=== PATIENT | female | born 2000 | race Two or more races ===

== ENCOUNTER 2025-06-01 11:28 | Observation (INO) | payer OTHER ==
[~2025-06-01] VITALS: Ht 161.3 cm; Wt 116.1 kg
--- NOTE | 2025-06-01 12:17 | DVHDS2 ---
Physician Discharge Progress N Final Diagnosis: cramping 37wks Operations or Procedures: Operations or Procedures nst reactive reviwed,sono Condition on Discharge: Good Disposition: Home Discharge Instructions: Diet: Regular Activity: No Restrictions, As Tolerated Medications: na Follow Up Care: Specialist: 1w Discharge Statement: "Patient was advised to return to the ER or call 911 if any headaches, dizziness, shortness of breath, chest pain, abdominal pain, bleeding, fevers, or worsening of medical condition. Patient was counseled about treatment plan, medications, possible side effects, patientverbalized understanding. All questions were answered to the best of my ability. This discharge took greater then 30 minutes in planning, reviewing docum entation, counseling the patient, and discussing with other team members." Visit Coding OBGYN Date of Service: Jun 01, 2025 Billing Provider: KALIE WELDON DO ACCOUNT SERVICES ASSOCIATE Common Visit Codes: [id number] OBS CARE (HIGH) ACCOUNT SERVICES ASSOCIATE Procedure Codes: 98137-74- NON-STRESS TEST KALIE WELDON DO Jun 01, 2025 12:17
== END 2025-06-01 12:27 | disposition home or self-care (01) ==
LOC: LDRP 11:28
PROVIDERS: ADMIT Obstetrics & Gynecology; ATTEND Obstetrics & Gynecology
DX: O26.893 Other specified pregnancy related conditions, third trimester (principal); R25.2 Cramp and spasm; Z3A.37 37 weeks gestation of pregnancy; Z98.890 Other specified postprocedural states
CPT/HCPCS: 59025; 81002; 94760; G0378

== ENCOUNTER 2025-06-15 11:22 | Inpatient (IN) | payer OTHER, MEDICAID ==
[~2025-06-15] VITALS: Ht 160 cm; Wt 71.7 kg
[2025-06-15] MEDS ORDERED: BUTORPHANOL TARTRATE 2 MG/1 ML VIAL IV PRN ×2 (21:30)
[2025-06-15] MEDS ORDERED: LIDOCAINE 2%HCL (LOCAL ANESTH.) INJ 20ML MDV IJ PRN (21:30)
[2025-06-15 22:24] LABS: Hematocrit 39.5 % (36.0-46.0); Hemoglobin 13.6 g/dL (12.2-16.2); Mean Corpuscular Hemoglobin 31.0 pg (28.0-32.0); Mean Corpuscular Volume 90.0 fL (80.0-100.0); Nucleated Red Blood Cells % 0.1 %
[2025-06-15 22:35] LABS: Urine Budding Yeast OCCASIONAL /hpf (None Seen); Urine Protein, UAD Negative (Negative)
[2025-06-15 22:38] LABS: INR 1.02 (0.9-1.15); Partial Thromboplastin Time 27.6 SEC (24.5-34.5); Prothrombin Time 10.8 sec (9.3-11.8)
[2025-06-15 22:42] LABS: Alanine Aminotransferase 20 U/L (7-40); Albumin 3.9 g/dL (3.2-4.8); Anion Gap 12 (5-15); BUN/Creatinine Ratio 15.1 (10.0-20.0); Calcium 8.9 mg/dL (8.7-10.4); Carbon Dioxide 21 mmol/L (20-31); Chloride 107 mmol/L (98-107); Glucose 95 mg/dL (74-106); Potassium 4.0 mmol/L (3.5-5.1); Sodium 140 mmol/L (136-145); Total Protein 6.6 g/dL (5.7-8.2)
[2025-06-15 22:48] LABS: Alkaline Phosphatase 167 U/L (46-116); Bilirubin, Total 0.2 mg/dL (0.2-1.0); Blood Urea Nitrogen 8 mg/dL (9-23)
[2025-06-15 22:48] LABS: Amphetamine Screen, Urine Neg (NEGATIVE); Barbiturate Scree,Urine Neg (NEGATIVE); Benzodiazephine Screen, Urine Neg (NEGATIVE); Cannabinoid Screen, Urine Neg (NEGATIVE); Cocaine Screen, Urine Neg (NEGATIVE); Opiate Scree,Urine Neg (NEGATIVE); Phencyclidine Screen, Urine Neg (NEGATIVE)
[2025-06-15] MEDS: WITCH HAZEL-GLYCERIN PAD TOP PRN (23:29)
[2025-06-15] MEDS: DERMOPLAST 60ML BOTTLE TOP PRN (23:29)
[2025-06-15] MEDS: PHISODERM TOP SOLN 240ML BTL TOP PRN (23:30)
[2025-06-15] MEDS: LACTATED RINGER'S 1,000 ML IV SCH (23:33)
--- NOTE | 2025-06-16 02:20 | DVHHP2 ---
OB CC & HPI Date Date of Admission: Jun 15, 2025 Patient Identification: : 2 Para: 0 EDC: Jun 17, 2025 Chief Complaints: Reason for admission: induction of labor Indication for induction: other Other reason for admission: Elective IOL History of Present Complaints Admission for Elective Induction of Labor 39w5d 06/15/2025 @ 2200 24 y/o (0,0,0,0) @ 39w5d Present to Labor unit for scheduled IOL Reports good' movements, Denies Leaking of fluid or vaginal bleeding Received care with Dr Mccartney LMP: 09/10/2024 EDC: 06/17/[address] Mccartney labs Blood Type A positive GBS Negative Rubella Immune RPR : Non Reactive - normal course thus far 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: Denies PSH: Denies Medications: PNV Social Hist: Denies Objective Laboratory Tests Test 06/15/25 22:10 06/15/25 22:00 Range/Units White Blood Count 9.3 4.4-10.8 10^3/uL Red Blood Count 4.39 4.0-5.20 10^6/uL Hemoglobin 13.6 12.2-16.2 g/dL Hematocrit 39.5 36.0-46.0 % Mean Corpuscular Volume 90.0 80.0-100.0 fL Mean Corpuscular Hemoglobin 31.0 28.0-32.0 pg Mean Corpuscular Hemoglobin Concent 34.4 32.0-36.0 g/dL Red Cell Distribution Width 16.1 H 11.8-14.3 % Platelet Count 209 140-450 10^3/uL Mean Platelet Volume 10.0 6.9-10.8 fL Neutrophils (%) (Auto) 64.2 37.0-80.0 % Lymphocytes (%) (Auto) 26.1 10.0-50.0 % Monocytes (%) (Auto) 8.0 0.0-12.0 % Eosinophils (%) (Auto) 1.4 0.0-7.0 % Basophils (%) (Auto) 0.3 0.0-2.0 % Neutrophils # (Auto) 6.0 1.6-8.6 10 ^3/uL Lymphocytes # (Auto) 2.4 0.4-5.4 10 ^3/uL Monocytes # (Auto) 0.7 0-1.3 10 ^3/uL Eosinophils # (Auto) 0.1 0-0.8 10 ^3/uL Basophils # (Auto) 0 0-0.2 10 ^3/uL Nucleated Red Blood Cells 0.1 % Prothrombin Time 10.8 9.3-11.8 sec Prothrombin Time INR 1.02 0.9-1.15 Activated Partial Thromboplast Time 27.6 24.5-34.5 SEC Sodium Level 140 136-145 mmol/L Potassium Level 4.0 3.5-5.1 mmol/L Chloride Level 107 98-107 mmol/L Carbon Dioxide Level 21 20-31 mmol/L Anion Gap 12 5-15 Blood Urea Nitrogen 8 L 9-23 mg/dL Creatinine 0.53 L 0.550-1.02 mg/dL Glomerular Filtration Rate Calc 134 >90 mL/min BUN/Creatinine Ratio 15.1 10.0-20.0 Serum Glucose 95 74-106 mg/dL Calcium Level 8.9 8.7-10.4 mg/dL Total Bilirubin 0.2 0.2-1.0 mg/dL Aspartate Amino Transferase (AST) 25 13-40 U/L Alanine Aminotransferase (ALT) 20 7-40 U/L Alkaline Phosphatase 167 H 46-116 U/L Total Protein 6.6 5.7-8.2 g/dL Albumin 3.9 3.2-4.8 g/dL Treponema pallidum Antibody Non-reactive Negative Hepatitis C Antibody Negative Negative Urine Color Colorless Yellow Urine Clarity Clear Clear Urine pH 7.0 5.0-9.0 Urine Specific [place] 1.009 1.001-1.035 Urine Protein Negative Negative Urine Ketones Trace Negative Urine Blood Negative Negative /uL Urine Nitrite Negative Negative Urine Bilirubin Negative Negative Urine Urobilinogen Normal Negative mg/dL Urine Leukocyte Esterase 2+ Negative /uL Urine RBC 1 0 - 4 /hpf Urine Microscopic WBC 5 0-5 /HPF Urine Squamous Epithelial Cells Few <5 /hpf Urine Bacteria Few H None Seen /hpf Urine Mucus Few None Seen Urine Yeast (Budding) Occasional None Seen /hpf Urine Glucose Normal Normal mg/dL Urine Opiates Screen Neg NEGATIVE Urine Fentanyl Screen Neg NEGATIVE Urine Barbiturates Screen Neg NEGATIVE Urine Phencyclidine Screen Neg NEGATIVE Urine Amphetamines Screen Neg NEGATIVE Urine Benzodiazepines Screen Neg NEGATIVE Urine Cocaine Screen Neg NEGATIVE Urine Cannabinoids Screen Neg NEGATIVE Current Medications Medications (Trade) Dose Ordered Sig/Rivka Route PRN Reason Start Time Stop Time Status Last Admin Dose Admin Lactated Ringer's 1,000 ml @ 125 mls/hr Q8H IV 06/15/25 21:30 06/16/25 00:53 Witch Benita (Tucks) 1 pad PRN PRN TOP PERINEAL AREA DISCOMFORT 06/15/25 21:30 06/15/25 23:29 Sodium Lauryl Sulfate (Phisoderm) 240 ml PRN PRN TOP PERINEAL AREA DISCOMFORT 06/15/25 21:30 06/15/25 23:30 Benzocaine (Dermoplast) 1 applic PRN PRN TOP PERINEAL AREA DISCOMFORT 06/15/25 21:30 06/15/25 23:29 Butorphanol Tartrate (Stadol Injection) 1 mg Q4HPRN PRN IV MODERATE PAIN (4-6 PAIN SCALE) 06/15/25 21:30 Butorphanol Tartrate (Stadol Injection) 2 mg Q4HPRN PRN IV SEVERE PAIN (7-10 PAIN SCALE) 06/15/25 21:30 Misoprostol (Cytotec) 50 mcg Q4HPRN PRN PO CERVICAL RIPENING 06/15/25 21:30 06/15/25 23:30 Lidocaine HCl (Xylocaine) 20 ml ONCE PRN IJ PERINEAL AREA DISCOMFORT 06/15/25 21:30 IOL process, cervical ripening with medication including the risks, benefits and all her options including primary Section discussed with the patient & partner. The patient wishes to proceed with trial of vaginal delivery. Informed consent obtained. Risk of pain, bleeding, infection, discussed with the patient and partner Consent for possible blood transfusion obtained. All questions answered. Admit to Place for scheduled IOL Routine L&D admission orders Misoprostol 50 mcg oral Q6H PRN per protocol EFM per policy & protocol Intrauterine resuscitation PRN Labor analgesia PRN Encourage frequent position change and ambulation to facilitate labor & descent Supportive Care Anticipate Vaginal Delivery Past Medical History Cardiac: No pertinent Hx Pulmonary: No pertinent Hx Central Nervous System: No pertinent Hx GI: No pertinent Hx Hemotology/Oncology: No pertinent Hx Hepatobiliary: No pertinent Hx Psychiatric: No pertinent Hx Musculoskeletal: No pertinent Hx Rheumotologic: No pertinent Hx Infectious Disease: No peritnent Hx ENT: No pertinent Hx Renal/: No pertinent Hx Endocrine: No pertinent Hx Dermatology: No pertinent Hx Past Surgical History: No pertinent Hx OB History OB History Care: Good Care Ultrasounds: Normal mid trimester US Obstetrical Complications: None Medical Complications: None Allergies: Coded Allergies: NO KNOWN ALLERGIES (Unverified , 06/01/25) Home Meds No Active Prescriptions or Reported Meds Current Medications Current Medications Medications (Trade) Dose Ordered Sig/Rivka Route PRN Reason Start Time Stop Time Status Last Admin Lactated Ringer's 1,000 ml @ 125 mls/hr Q8H IV 06/15/25 21:30 06/16/25 00:53 Witch Benita (Tucks) 1 pad PRN PRN TOP PERINEAL AREA DISCOMFORT 06/15/25 21:30 06/15/25 23:29 Sodium Lauryl Sulfate (Phisoderm) 240 ml PRN PRN TOP PERINEAL AREA DISCOMFORT 06/15/25 21:30 06/15/25 23:30 Benzocaine (Dermoplast) 1 applic PRN PRN TOP PERINEAL AREA DISCOMFORT 06/15/25 21:30 06/15/25 23:29 Butorphanol Tartrate (Stadol Injection) 1 mg Q4HPRN PRN IV MODERATE PAIN (4-6 PAIN SCALE) 06/15/25 21:30 Butorphanol Tartrate (Stadol Injection) 2 mg Q4HPRN PRN IV SEVERE PAIN (7-10 PAIN SCALE) 06/15/25 21:30 Misoprostol (Cytotec) 50 mcg Q4HPRN PRN PO CERVICAL RIPENING 06/15/25 21:30 06/15/25 23:30 Lidocaine HCl (Xylocaine) 20 ml ONCE PRN IJ PERINEAL AREA DISCOMFORT 06/15/25 21:30 Family & Social History Family/Social History Blood Type: A+ Rubella: immune RPR/VDRL: Negative GBS Status: Negative HBsAG: Negative Review of Systems Constitutional: No symptom reported Ears, Nose, & Throat: No symptom reported Eyes: No symptom reported Pulmonary/Respiratory: No symptom reported Cardiovascular: No symptom reported Gastrointestinal: No symptom reported Genitourinary: No symptom reported Musculoskeletal: No symptom reported Skin: No symptom reported Psychiatric: No symptom reported Endocrine: No symptom reported Hemotologic/Lymphatic: No symptom reported OB Admission Exam Physical Exam HEENT: NCAT Heart: Rhythm Normal Lungs: Clear Abdomen: Gravid Extremities: Normal Reflexes: Normal Pelvic Exam: 60/-2 Cephalic per RN SVE Cervical Dilatation: 1cm Effacement: Other Station: -2 Membranes: Intact Heart Rate: 120's Accelerations: Accelerations Present Decelerations: No Decelerations Short Term Variability: Present Residential Variability: Average (6-25) Contractions on Admission: < 5 Minutes Apart Intensity: Mild OB Plan Plan Admitting Diagnosis: Induction of labor Plan: Induction Induction Methd: Misoprostol protocol Visit Coding OBGYN Date of Service: Jun 16, 2025 Billing Provider: HALIMA CAMPBELL CNM PLANT DIRECTOR Common Visit Codes: [id number] OBS CARE (MOD), [id number] INP/OBS CARE (MOD) HALIMA CAMPBELLNJct 2024 02:20
--- NOTE | 2025-06-16 05:47 | DVHPN2 ---
CNM Labor Progress Note Date and Time Seen Date Seen: Jun 16, 2025 Time Seen: 05:25 Subjective Patient reports: No new complaints Subjective Comment 06/16/2025 @ 0525 At bedside for placement of cervical ripening balloon Cook's CRB placed via speculum 80 ML NS Uterine placed 40 ML NS Vaginal placed Patient tolerated the procedure well 24 y/o (0,0,0,0) @ 39w5d Present to Labor unit for scheduled IOL Reports good' movements, Denies Leaking of fluid or vaginal bleeding Received care with Dr Mccartney LMP: 09/10/2024 EDC: 06/17/[address] Mccartney labs Blood Type A positive GBS Negative Rubella Immune RPR : Non Reactive - normal course thus far 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 PSH: Denies Medications: PNV Social Hist: Denies Objective Monitoring Method Monitoring Method: External Heart Rate Heart Rate Baseline: 135 Heart Rate Variability: Moderate Presence of FHR Accelerations: Yes Presence of FHR Decelerations: No Changes in Trends of Patterns: No Are all 5 Components of the FH: Yes Contractions Contractions Frequency: Occasional Contractions Intensity: Moderate Contractions Resting Tone: Relaxed Membranes Membranes: Intact Vaginal Exam Vag Exam Deferred: No Vaginal Exam Dilation: 1 Vaginal Exam Effacement: 60 Vaginal Exam Station: -3 Vaginal Exam Presentation: VTX Vaginal Exam Show: Moderate Medications Medications - Pitocin: No Lab Results Lab Results Current Medications Medications (Trade) Dose Ordered Sig/Rivka Start Time Stop Time Status Last Admin Dose Admin Lactated Ringer's 1,000 ml @ 125 mls/hr Q8H 06/15/25 21:30 06/16/25 00:53 125 MLS/HR Ryan Joy (Tucks) 1 pad PRN PRN 06/15/25 21:30 06/15/25 23:29 1 PAD Sodium Lauryl Sulfate (Phisoderm) 240 ml PRN PRN 06/15/25 21:30 06/15/25 23:30 240 ML Benzocaine (Dermoplast) 1 applic PRN PRN 06/15/25 21:30 06/15/25 23:29 1 APPLIC Butorphanol Tartrate (Stadol Injection) 1 mg Q4HPRN PRN 06/15/25 21:30 Butorphanol Tartrate (Stadol Injection) 2 mg Q4HPRN PRN 06/15/25 21:30 Misoprostol (Cytotec) 50 mcg Q4HPRN PRN 06/15/25 21:30 06/16/25 05:01 50 MCG Lidocaine HCl (Xylocaine) 20 ml ONCE PRN 06/15/25 21:30 Laboratory Tests Test 06/15/25 22:10 06/15/25 22:00 Range/Units White Blood Count 9.3 4.4-10.8 10^3/uL Red Blood Count 4.39 4.0-5.20 10^6/uL Hemoglobin 13.6 12.2-16.2 g/dL Hematocrit 39.5 36.0-46.0 % Mean Corpuscular Volume 90.0 80.0-100.0 fL Mean Corpuscular Hemoglobin 31.0 28.0-32.0 pg Mean Corpuscular Hemoglobin Concent 34.4 32.0-36.0 g/dL Red Cell Distribution Width 16.1 H 11.8-14.3 % Platelet Count 209 140-450 10^3/uL Mean Platelet Volume 10.0 6.9-10.8 fL Neutrophils (%) (Auto) 64.2 37.0-80.0 % Lymphocytes (%) (Auto) 26.1 10.0-50.0 % Monocytes (%) (Auto) 8.0 0.0-12.0 % Eosinophils (%) (Auto) 1.4 0.0-7.0 % Basophils (%) (Auto) 0.3 0.0-2.0 % Neutrophils # (Auto) 6.0 1.6-8.6 10 ^3/uL Lymphocytes # (Auto) 2.4 0.4-5.4 10 ^3/uL Monocytes # (Auto) 0.7 0-1.3 10 ^3/uL Eosinophils # (Auto) 0.1 0-0.8 10 ^3/uL Basophils # (Auto) 0 0-0.2 10 ^3/uL Nucleated Red Blood Cells 0.1 % Prothrombin Time 10.8 9.3-11.8 sec Prothrombin Time INR 1.02 0.9-1.15 Activated Partial Thromboplast Time 27.6 24.5-34.5 SEC Sodium Level 140 136-145 mmol/L Potassium Level 4.0 3.5-5.1 mmol/L Chloride Level 107 98-107 mmol/L Carbon Dioxide Level 21 20-31 mmol/L Anion Gap 12 5-15 Blood Urea Nitrogen 8 L 9-23 mg/dL Creatinine 0.53 L 0.550-1.02 mg/dL Glomerular Filtration Rate Calc 134 >90 mL/min BUN/Creatinine Ratio 15.1 10.0-20.0 Serum Glucose 95 74-106 mg/dL Calcium Level 8.9 8.7-10.4 mg/dL Total Bilirubin 0.2 0.2-1.0 mg/dL Aspartate Amino Transferase (AST) 25 13-40 U/L Alanine Aminotransferase (ALT) 20 7-40 U/L Alkaline Phosphatase 167 H 46-116 U/L Total Protein 6.6 5.7-8.2 g/dL Albumin 3.9 3.2-4.8 g/dL Treponema pallidum Antibody Non-reactive Negative Hepatitis C Antibody Negative Negative Urine Color Colorless Yellow Urine Clarity Clear Clear Urine pH 7.0 5.0-9.0 Urine Specific [place] 1.009 1.001-1.035 Urine Protein Negative Negative Urine Ketones Trace Negative Urine Blood Negative Negative /uL Urine Nitrite Negative Negative Urine Bilirubin Negative Negative Urine Urobilinogen Normal Negative mg/dL Urine Leukocyte Esterase 2+ Negative /uL Urine RBC 1 0 - 4 /hpf Urine Microscopic WBC 5 0-5 /HPF Urine Squamous Epithelial Cells Few <5 /hpf Urine Bacteria Few H None Seen /hpf Urine Mucus Few None Seen Urine Yeast (Budding) Occasional None Seen /hpf Urine Glucose Normal Normal mg/dL Urine Opiates Screen Neg NEGATIVE Urine Fentanyl Screen Neg NEGATIVE Urine Barbiturates Screen Neg NEGATIVE Urine Phencyclidine Screen Neg NEGATIVE Urine Amphetamines Screen Neg NEGATIVE Urine Benzodiazepines Screen Neg NEGATIVE Urine Cocaine Screen Neg NEGATIVE Urine Cannabinoids Screen Neg NEGATIVE Assessment Assessment Assessment/Plan CRB placed Uterine 80/ Vaginal 40 Tolerated procedure well Policy of Induction CRB / Misoprostol Last dose of Misoprostol 444 D/C Misoprostol for Now due to policy Will override due to timing of the CRB placement IOL process, cervical ripening with medication including the risks, benefits and all her options including primary Section discussed with the patient & partner. The patient wishes to proceed with trial of vaginal delivery. Informed consent obtained. Risk of pain, bleeding, infection, discussed with the patient and partner Consent for possible blood transfusion obtained. All questions answered. Admit to Place for scheduled IOL Routine L&D admission orders Misoprostol 50 mcg oral Q6H PRN per protocol EFM per policy & protocol Intrauterine resuscitation PRN Labor analgesia PRN Encourage frequent position change and ambulation to facilitate labor & descent Supportive Care Anticipate Vaginal Delivery Plan Plan discussed with: Patient Visit Coding OBGYN Date of Service: Jun 16, 2025 Billing Provider: HALIMA CAMPBELL CNM ASSISTANT WINEMAKER Common Visit Codes: [id number] OBS CARE (MOD), [id number] INP/OBS CARE (MOD) HALIMA CAMPBELLNHct 2024 05:47
[2025-06-16] MEDS ORDERED: LACTATED RINGER'S 500 ML IV ONE (06:00)
[2025-06-16] MEDS: ACETAMINOPHEN 325 MG TAB PO ONE (13:46)
[2025-06-16] MEDS: ROPIVACAINE HCL 100 ML ONE (13:51)
[2025-06-16] MEDS ORDERED: TERBUTALINE SULFATE 1 MG/ML 1ML VIAL SC PRN (19:15)
[2025-06-16] MEDS: LACT. RINGERS/OXYTOCIN 20UNITS 1,000 ML IV SCH (20:23)
[2025-06-17] VITALS (8 sets, daily range): BP systolic 108–151; BP diastolic 54–76; PULSE 67–130; RESP 12–18; TEMP 98.2–98.7; O2SAT 75–97
[2025-06-17] MEDS: ROPIVACAINE HCL 100 ML ONE ×4 (05:38→12:43)
--- NOTE | 2025-06-17 10:52 | DVHPN2 ---
Chief Complaints Patient reports: No new complaints Nursing reports: No new complaints, Other (Patient has had no significant further dilation and/or descent of vertex after 2 hours of active labor given patient's habitus and potentially macrosomia I had offered the patient and recommended it to avoid shoulder dystocia or other damage to the . Patient has internal monitors would ultimately like to proceed with urgent section heart tones do look reassuring she has had a few deep variables with good recovery. We discussed risks benefits complications alternatives to as well as a versus stones in the future. This discussion was not limited to infection bleeding MCV Q kind of pain damage to adjacent organs bowel bladder ureter nerve vessels. All questions answered patient patient's mother and significant other believes her are all in agreement all questions answered and encouraged.) Objective Vitals Vital Signs Date Time Temp Pulse Resp B/P (MAP) Pulse Ox O2 Delivery O2 Flow Rate FiO2 06/16/25 13:46 100.0 Medications Current Medications Medications (Trade) Dose Ordered Sig/Rivka Route PRN Reason Start Time Stop Time Status Last Admin Oxytocin 1,000 ml @ 3 ml/hr Q24H IV 06/16/25 19:15 06/17/25 07:17 Terbutaline Sulfate (Brethine Inj) 0.25 mg ONCE PRN SC Uterine tachysystole 06/16/25 19:15 General: Normal Neck: Normal Lungs: Normal Cardiovascular: Normal Abdominal: Normal (Thanh's 8 +lb) Musculoskeletal: Normal Extremities: Normal Skin: Normal Neurological: Normal Studies Laboratory Tests 06/15/25 22:10 Test 06/15/25 22:10 Range/Units Serum Glucose 95 74-106 mg/dL Ass/Plan Assessment Failure to progress suspect macrosomia, maternal CPD cephalopelvic disproportion Plan Primary low-transverse section. BLANKA ESPARZA DO Jun 17, 2025 10:52
--- NOTE | 2025-06-17 10:55 | DVHOP2 ---
Operative Report - 2 Report Details Date: 06/17/25 Preop Diagnosis: Failed induction due to be 0 adequate labor no dilation passed 6 cm no descent past 0 station. Failure to progress CPD cephalopelvic disproportion suspect macrosomia Postop Diagnosis: Same Surgeon: Natalia Esparza Anesthesiologist: Nafisa Guzman MD Anesthesia: Regional Drains: Ortiz catheter Implant: None Consent: The patient was informed of the risks and benefits of the procedure. These include but are not limited to complications of anesthesia, postoperative infection, incomplete relief of symptoms, recurrence of symptoms, damage to blood vessels, nerves and tendons, deep venous thrombosis, pulmonary embolism and possible need for repeat surgery in the future. Complications: None Estimated Blood Loss: 650 cc Fluids: See anesthesia lot Findings: Female vigorous crying tone clear amniotic fluid APGARS 9/9 Indications for Surgery: [place] to progress CBD cephalopelvic disproportion suspect macrosomia Name of Procedure Performed Primary low-transverse section Procedure Details Procedure Details: Patient states the operating placed in sitting position spinal plus the difficulty she has in place left little toe prepped history of fascia low Pfannenstiel incision made through old scar carried through the rectus fascia in the midline carried laterally rectus muscles were per midline. Number identified and intervals sharp dissection vesical peritoneum was taken off lower uterine segment a low uterine transverse incision made with scalpel then hourglassing cramp membranes are ruptured hemostat clear fluid to be vertex position 1/2 plates lower uterine segment and has essentially delivered spontaneously nose mouth obstructive chosen torsion delivery without difficulty. 62nd delayed cord clamp was performed cord clamped and infant handed off to waiting respiratory and OB nurses. Blood sample taken placenta removed uterus exteriorized cleared of all clots and debris and closed with double layer of 2-0 Vicryl. It complete hemostasis at this point EBL 650: Findings mild scar tissue normal tubes ovaries uterus and pelvic anatomy. Uterus placed to Catrina after clearing the cul-de-sac as well as right and left gutter of all clots and debris copiously irrigated instruments sponge count correct x1. Peritoneum) continues to 0 Vicryl rectus fascia closed with a running continuous 0 PDS can prescribe fascia approximated with 2-0 chromic and the skin was closed with a 3- 0 Prolene on a Robb needle benzoin Steri-Strips placed ABD and pressure dressing placed uterus firm patient was frog-leg then the vagina was cleared of all clots and debris no abnormal active bleeding noted. Infant taken to PACU recovery in stable condition with guarded transferred to nursery. Specimen: Placenta, umbilical blood sample Condition Good Disposition 2 Mom to PACU postop recovery, to the nursery BLANKA ESPARZA DO Jun 17, 2025 10:55
[2025-06-17] MEDS ORDERED: LACT. RINGERS/OXYTOCIN 20UNITS 1,000 ML IV SCH (11:00)
[2025-06-17] MEDS ORDERED: ceFAZolin 1GM/50ML 50 ML IV SCH (11:00)
[2025-06-17] MEDS ORDERED: MORPHINE SULFATE 4 MG/ML SYR/VIAL IV PRN (11:00)
[2025-06-17] MEDS ORDERED: ONDANSETRON HCL 4 MG/2 ML VIAL IV PRN ×2 (11:00→17:00)
[2025-06-17] MEDS: ceFAZolin 2 GM/D5W50ml 50 ML IV ONE (11:30)
[2025-06-17 12:03] LABS: Hematocrit 40.3 % (36.0-46.0); Hemoglobin 13.4 g/dL (12.2-16.2); Mean Corpuscular Hemoglobin 29.7 pg (28.0-32.0); Mean Corpuscular Volume 89.8 fL (80.0-100.0); Nucleated Red Blood Cells % 0.0 %
[2025-06-17] MEDS: NALOXONE HCL 0.4 MG/ML VIAL IV ONE (12:43)
[2025-06-17] MEDS ORDERED: MORPHINE SULF PF 5 MG/10 ML VIAL ONE (15:15)
[2025-06-17] MEDS ORDERED: fentaNYL CITRATE 100 MCG/2 ML VL ONE (15:15)
[2025-06-17] MEDS ORDERED: GLYCOPYRROLATE 0.2 MG/ML 1ML VIAL ONE (15:16)
[2025-06-17] MEDS ORDERED: ONDANSETRON HCL 4 MG/2 ML VIAL ONE (15:16)
[2025-06-17] MEDS ORDERED: NALOXONE HCL 0.4 MG/ML VIAL IV PRN (17:00)
[2025-06-17] MEDS: ACETAMINOPHEN IV 1000 MG/100ML (10MG/ML) IV ONE (19:29)
[2025-06-17] MEDS: LACTATED RINGER'S 1,000 ML IV SCH (19:29)
[2025-06-17] MEDS: diphenhydrAMINE HCL 50 MG/1 ML VL IV PRN (19:30)
[2025-06-17] MEDS: FAMOTIDINE (10MG/ML) 2ML VL IV PRN (22:39)
[2025-06-18] VITALS (16 sets, daily range): BP systolic 101–128; BP diastolic 53–75; PULSE 103–134; RESP 16–18; TEMP 98.3–101.5; O2SAT 94–100
[2025-06-18] MEDS: ceFAZolin 1GM/50ML 50 ML IV SCH (00:28)
[2025-06-18 00:50] LABS: Hematocrit 36.4 % (36.0-46.0); Hemoglobin 12.4 g/dL (12.2-16.2); Mean Corpuscular Hemoglobin 30.9 pg (28.0-32.0); Mean Corpuscular Volume 91.0 fL (80.0-100.0); Nucleated Red Blood Cells % 0.0 %
[2025-06-18] MEDS: KETOROLAC TROMETH 30 MG/ML 1ML VIAL IV PRN (01:56)
--- NOTE | 2025-06-18 05:54 | DVHPN2 ---
Chief Complaints Patient reports: No new complaints, Feels better, Other (Postop day 1 section stable improved) Nursing reports: No new complaints, Other (Patient has had no significant further dilation and/or descent of vertex after 2 hours of active labor given patient's habitus and potentially macrosomia I had offered the patient and recommended it to avoid shoulder dystocia or other damage to the . Patient has internal monitors would ultimately like to proceed with urgent section heart tones do look reassuring she has had a few deep variables with good recovery. We discussed risks benefits complications alternatives to as well as a versus stones in the future. This discussion was not limited to infection bleeding MCV Q kind of pain damage to adjacent organs bowel bladder ureter nerve vessels. All questions answered patient patient's mother and significant other believes her are all in agreement all questions answered and encouraged.) Objective Vitals Vital Signs Date Time Temp Pulse Resp B/P (MAP) Pulse Ox O2 Delivery O2 Flow Rate FiO2 06/18/25 04:30 103 16 94 06/18/25 03:00 98.3 98.3 06/17/25 23:00 06/17/25 19:00 Room Air Medications Current Medications Medications (Trade) Dose Ordered Sig/Rivka Route PRN Reason Start Time Stop Time Status Last Admin Cefazolin Sodium 50 ml @ 100 mls/hr Q8H IV 06/17/25 21:00 06/18/25 13:29 06/18/25 00:28 Diphenhydramine HCl (Benadryl Injection) 25 mg Q4HP PRN IV FOR ITCHING 06/17/25 17:00 06/17/25 19:30 Famotidine (Pepcid Injection) 20 mg Q12HR PRN IV itching 06/17/25 22:15 06/17/25 22:39 Ketorolac Tromethamine (Toradol Injection) 30 mg Q6HP PRN IV MODERATE PAIN (4-6 PAIN SCALE) 06/17/25 17:00 06/22/25 16:59 06/18/25 01:56 Lactated Ringer's 1,000 ml @ 125 mls/hr Q8H IV 06/17/25 11:00 06/18/25 05:44 Morphine Sulfate 2 mg Q4HP PRN IV SEVERE PAIN (7-10 PAIN SCALE) 06/17/25 11:00 Ondansetron HCl (Zofran) 4 mg Q4HP PRN IV NAUSEA / VOMITING 06/17/25 17:00 Oxytocin 1,000 ml @ 150 mls/hr Q6H40M IV 06/17/25 11:00 General: Normal Neck: Normal Lungs: Normal Cardiovascular: Normal Abdominal: Normal (Wounds clean dry and intact no sign infection) Musculoskeletal: Normal Extremities: Normal Skin: Normal Neurological: Normal Studies Laboratory Tests 06/18/25 00:25 06/15/25 22:10 Test 06/15/25 22:10 Range/Units Serum Glucose 95 74-106 mg/dL Ass/Plan Assessment Status post section postop day 1 secondary to Failure to progress suspect macrosomia, maternal CPD cephalopelvic disproportion Plan Advanced Care see orders. BLANKA ESPARZA DO Jun 18, 2025 05:54
[2025-06-18] MEDS: GELATIN 1 SPONGE SIZE 100 TOP ONE (06:24)
[2025-06-18 06:36] LABS: Hematocrit 34.1 % (36.0-46.0); Hemoglobin 11.7 g/dL (12.2-16.2); Mean Corpuscular Hemoglobin 31.5 pg (28.0-32.0); Mean Corpuscular Volume 91.8 fL (80.0-100.0); Nucleated Red Blood Cells % 0.0 %
[2025-06-18] MEDS: ACETAMINOPHEN IV 1000 MG/100ML (10MG/ML) IV PRN (08:04)
--- NOTE | 2025-06-18 09:24 | DVH ---
CHEST RADIOGRAPH Indication: R/O pneumonia Technique: Single frontal view of the chest was obtained Comparison: None FINDINGS: Lines and Tubes: None Lungs: No focal consolidation. Pleura: No effusion. No pneumothorax. Cardiomediastinal contours: Unremarkable Bones: No acute osseous abnormality. IMPRESSION: 1. No acute cardiopulmonary disease.
[2025-06-18] MEDS: PIPERACILLIN-TAZOB 3.375GM 100 ML IV SCH (09:49)
[2025-06-18 10:12] LABS: Urine Protein, UAD TRACE (Negative)
[2025-06-18] MEDS ORDERED: IBUP-1456 PO (12:36)
[2025-06-18] MEDS ORDERED: CEPH500T PO (12:36)
[2025-06-18] MEDS ORDERED: DOCU-94 PO (12:36)
[2025-06-18] MEDS ORDERED: HYDR-4072 PO (12:36)
[2025-06-18] MEDS: SIMETHICONE 80 MG CHEWABLE TABLET PO SCH (15:15)
[2025-06-18] MEDS: DOCUSATE SOD 100 MG CAP PO SCH (20:42)
[2025-06-18] MEDS: HYDROcodone-ACET 5/325MG TAB PO PRN (20:44)
[2025-06-18] MEDS: IBUPROFEN 800 MG TAB PO PRN (23:16)
[2025-06-19 03:00] VITALS: BP 114/54; PULSE 95; RESP 16; TEMP 97.8; O2SAT 96
[2025-06-19] MEDS: PIPERACILLIN-TAZOB 3.375GM 100 ML IV SCH (03:11)
[2025-06-19] MEDS: HYDROcodone-ACET 5/325MG TAB PO PRN (05:36)
--- NOTE | 2025-06-19 05:47 | DVHDS2 ---
Discharge Summary Date of Admission Jun 15, 2025 at 21:07 Date of Discharge: Jun 19, 2025 Admitting Diagnosis Wounds: clean dry intact Labs/Diagnostic Data: Laboratory Results Test 06/18/25 09:30 06/18/25 05:36 06/15/25 22:10 06/15/25 22:00 Urine Color Red (Yellow) Urine Clarity Cloudy (Clear) Urine pH 6.0 (5.0-9.0) Urine Specific [place] 1.006 (1.001-1.035) Urine Protein Trace (Negative) Urine Ketones 1+ (Negative) Urine Blood 3+ /uL (Negative) Urine Nitrite Negative (Negative) Urine Bilirubin Negative (Negative) Urine Urobilinogen Normal mg/dL (Negative) Urine Leukocyte Esterase 2+ /uL (Negative) Urine RBC 224 /hpf (0 - 4) Urine Microscopic WBC 47 /HPF (0-5) Urine Squamous Epithelial Cells Few /hpf (<5) Urine Bacteria Few /hpf (None Seen) Urine Glucose Normal mg/dL (Normal) White Blood Count 13.4 10^3/uL (4.4-10.8) Red Blood Count 3.71 10^6/uL (4.0-5.20) Hemoglobin 11.7 g/dL (12.2-16.2) Hematocrit 34.1 % (36.0-46.0) Mean Corpuscular Volume 91.8 fL (80.0-100.0) Mean Corpuscular Hemoglobin 31.5 pg (28.0-32.0) Mean Corpuscular Hemoglobin Concent 34.4 g/dL (32.0-36.0) Red Cell Distribution Width 15.8 % (11.8-14.3) Platelet Count 173 10^3/uL (140-450) Mean Platelet Volume 10.0 fL (6.9-10.8) Neutrophils (%) (Auto) 83.7 % (37.0-80.0) Lymphocytes (%) (Auto) 11.1 % (10.0-50.0) Monocytes (%) (Auto) 4.9 % (0.0-12.0) Eosinophils (%) (Auto) 0.1 % (0.0-7.0) Basophils (%) (Auto) 0.2 % (0.0-2.0) Neutrophils # (Auto) 11.2 10 ^3/uL (1.6-8.6) Lymphocytes # (Auto) 1.5 10 ^3/uL (0.4-5.4) Monocytes # (Auto) 0.7 10 ^3/uL (0-1.3) Eosinophils # (Auto) 0 10 ^3/uL (0-0.8) Basophils # (Auto) 0 10 ^3/uL (0-0.2) Nucleated Red Blood Cells 0.0 % Prothrombin Time 10.8 sec (9.3-11.8) Prothrombin Time INR 1.02 (0.9-1.15) Activated Partial Thromboplast Time 27.6 SEC (24.5-34.5) Sodium Level 140 mmol/L (136-145) Potassium Level 4.0 mmol/L (3.5-5.1) Chloride Level 107 mmol/L (98-107) Carbon Dioxide Level 21 mmol/L (20-31) Anion Gap 12 (5-15) Blood Urea Nitrogen 8 mg/dL (9-23) Creatinine 0.53 mg/dL (0.550-1.02) Glomerular Filtration Rate Calc 134 mL/min (>90) BUN/Creatinine Ratio 15.1 (10.0-20.0) Serum Glucose 95 mg/dL (74-106) Calcium Level 8.9 mg/dL (8.7-10.4) Total Bilirubin 0.2 mg/dL (0.2-1.0) Aspartate Amino Transferase (AST) 25 U/L (13-40) Alanine Aminotransferase (ALT) 20 U/L (7-40) Alkaline Phosphatase 167 U/L (46-116) Total Protein 6.6 g/dL (5.7-8.2) Albumin 3.9 g/dL (3.2-4.8) Treponema pallidum Antibody Non-reactive (Negative) Hepatitis C Antibody Negative (Negative) Urine Mucus Few (None Seen) Urine Yeast (Budding) Occasional /hpf (None Urine Opiates Screen Neg (NEGATIVE) Urine Fentanyl Screen Neg (NEGATIVE) Urine Barbiturates Screen Neg (NEGATIVE) Urine Phencyclidine Screen Neg (NEGATIVE) Urine Amphetamines Screen Neg (NEGATIVE) Urine Benzodiazepines Screen Neg (NEGATIVE) Urine Cocaine Screen Neg (NEGATIVE) Urine Cannabinoids Screen Neg (NEGATIVE) Other Laboratory Tests 06/18/25 05:36 06/15/25 22:10 Brief Hx & Hospital Course: Cesareans performed postop day 2 stable for discharge home afebrile greater than 24 hours Consults/Reason for consult None Operations or Procedures Primary low-transverse section Condition at Discharge: Good Final Diagnosis/Problems List Same Discharge Disposition: Home Discharge Instruct/Medications Diet: Consistent carbohydrate Activity: Light activity (Pelvic rest 6 weeks wound care instructions abdominal binder) Follow Up/Referral: Wound check 1-[address] Mccartney Medications: Medications to be sent narcotics antibiotics prophylaxis by incoming staff physician/inspector outside production Scheduled Cephalexin Monohydrate (Cephalexin), 1 TAB PO QID Docusate Sodium (Colace), 1 CAP PO BID Scheduled PRN Hydrocodone-Acetaminophen (Hydrocodone/Acetaminophen 10-325 mg), 1 TAB PO Q6HPRN PRN Ibuprofen (Ibuprofen), 800 MG PO TID PRN Discharge Statement: "Patient was advised to return to the ER or call 911 if any headaches, dizziness, shortness of breath, chest pain, abdominal pain, bleeding, fevers, or worsening of medical condition. Patient was counseled about treatment plan, medications, possible side effects, patientverbalized understanding. All questions were answered to the best of my ability. This discharge took greater then 30 minutes in planning, reviewing documentation, counseling the patient, and discussing with other team members." ASSESSMENT ASSESSMENT Assessment Same Visit Coding OBGYN Date of Service: Jun 19, 2025 Billing Provider: BLANKA ESPARZA DO [employer] Common Visit Codes: 72085-[id number] INP/OBS CARE(MOD), 22319-JKF/OBS SAME DATE (LOW), 09897-SAI/OBS SAME DATE (MOD), 96445-BEG/OBS SAME DATE (HIGH) [employer] Procedure Codes: 09539-XZYQI OB CARE, DEL BLANKA ESPARZA DO Jun 19, 2025 05:47
[2025-06-19 11:00] VITALS: BP 121/69; PULSE 100; RESP 20; TEMP 98.2; O2SAT 96
== END 2025-06-19 14:06 | disposition home or self-care (01) | DRG 787 ==
LOC: LDRP 21:07
PROVIDERS: ADMIT Obstetrics & Gynecology; ATTEND Obstetrics & Gynecology
PROC: 10D00Z1 Extraction of Products of Conception, Low, Open Approach (ICD-10-PCS; principal; 2025-06-17 15:23)
DX: O33.9 Maternal care for disproportion, unspecified (principal); R71.0 Precipitous drop in hematocrit; Z37.0 Single live birth; Z3A.39 39 weeks gestation of pregnancy; O62.2 Other uterine inertia
CPT/HCPCS: 36415; 59025; 59200; 62282; 71045; 80053; 80307; 81001; 81002; 85025; 85610; 85730; 86780; 86803; 86850; 86900; 86901; 94760; 94762; 96360; 96361; 96365; 96366; 96374; 96375; A4344; G0378; J0131; J1885; J2405; J2543; J2590; J3490